=== PATIENT | female | born 1995 | race Caucasian/White ===

== ENCOUNTER 2016-11-10 17:13 | Emergency (ER) | payer BC ==
[2016-11-10 18:39] VITALS: BP 134/72
--- NOTE | 2016-11-11 00:37 | UC ---
Violette Westbrook Alok, scribed for Jolene Harmon MD on 11/10/16 at 1959 . Complaint Female HPI - HPI Summary HPI Summary: 21F presents to [facility] with urinary tract discomfort and suprapubic abd pain. Pt states her symptoms have been ongoing for 1 week and has worsened today. Pt also notes left flank pain on and off for the past week. Pt notes dysuria and increased urinary urgency. Pt denies fever. Pt denies vaginal discharge. Pt notes h/o kidney infection. Her LMP was 10/26/2016. Pt is allergic to Sulfa. - History Of Current Complaint Chief Complaint: UCGU Stated Complaint: URINARY ISSUE Time Seen by Provider: 11/10/16 17:29 Hx Obtained From: Patient Hx Last Menstrual Period: 10/20/16 ?: No Onset/Duration: Lasting Days, Worse Since - today Timing: Constant Severity Initially: Moderate Severity Currently: Moderate Pain Intensity: 0 Pain Scale Used: 0-10 Numeric Radiates to: suprapubic, left flank Character: Dull Aggravating Factor(s): Nothing Alleviating Factor(s): Nothing Associated Signs And Symptoms: Negative: Fever, Vaginal Bleeding/Discharge, Vaginal Discharge Related Hx: Similar Episode/Dx as: - UTI - Allergies/Home Medications Allergies/Adverse Reactions: Allergies Allergy/AdvReac Type Severity Reaction Status Date / Time Sulfa Antibiotics Allergy Unknown Verified 11/10/16 18:33 Reaction Details Home Medications: Home Medications Multiple Vitamin [Multivitamins] 1 cap PO DAILY 11/10/16 [History Confirmed ] Phenazopyridine HCl [Azo Urinary Pain Relief] 1 tab PO DAILY PRN 11/10/16 [ History Confirmed 11/10/16] PMH/Surg Hx/FS Hx/Imm Hx Previously Healthy: Yes GI/ History: Other - h/o kidney infection Other GI/ History: kidney infection - Surgical History Surgical History: None - Family History Known Family History: Positive: Other - Yes - Kidney stones (Mom) - Social History Occupation: Student Alcohol Use: Weekly Substance Use Type: None Substance Use Comment - Amount & Last Used: denies Smoking Status (MU): Current Some Day Smoker Amount Used/How Often: 1/2 pk/week Review of Systems Constitutional: Negative Gastrointestinal: Abdominal Pain Genitourinary: Dysuria, Urgency, Other - left flank pain All Other Systems Reviewed And Are Negative: Yes Physical Exam Triage Information Reviewed: Yes Appearance: Well-Appearing, Well-Nourished, Pain Distress Vital Signs: Initial Vital Signs Temp 98.3 F 11/10/16 18:35 Pulse 64 11/10/16 18:35 Resp 16 11/10/16 18:35 BP 134/72 11/10/16 18:35 Pulse Ox 100 11/10/16 18:35 Vital Signs Reviewed: Yes Eyes: Positive: Conjunctiva Clear ENT Exam: Normal Neck: Positive: Supple, Nontender, No Lymphadenopathy Respiratory: Positive: Lungs clear, Normal breath sounds, No respiratory distress Cardiovascular: Positive: RRR, No Murmur, Pulses Normal, Brisk Capillary Refill Abdomen Description: Positive: Nontender, No Organomegaly, Soft. Negative: CVA Tenderness (R), Distended, Guarding, McBurney's Point Tenderness, Peritoneal Signs Bowel Sounds: Positive: Present Musculoskeletal: Positive: Strength Intact, ROM Intact Neurological: Positive: Alert, Muscle Tone Normal Psychological Exam: Normal Skin Exam: Normal Complaint Female Dx - Course Course Of Treatment: Pt medications reviewed this visit. High BP noted. Pt presents with burning dysuria and left flank pain. Pt has h/o kidney infection. Pt took azo prior to coming, so will treat empirically. Await culture. Pt discharge with dx of UTI and antibiotics rx. - Differential Dx/Diagnosis Differential Diagnosis/HQI/PQRI: Ureteral Stone, Urinary Tract Infection, Other - STD Provider Diagnoses: Elevated BP without dx of HTN. Tobacco abuse disorder. UTI. Discharge - Discharge Plan Condition: Stable Disposition: HOME Prescriptions: Nitrofurantoin Monohyd Macro [Macrobid] 100 mg PO BID #14 cap Phenazopyridine 200 mg (NF) [Pyridium 200 MG tab] 200 mg PO TID PRN #15 tab PRN Reason: Pain Patient Education Materials: Urinary Tract Infection in Women (ED) Referrals: No Primary Care Phys,NOPCP [Primary Care Provider] - Additional Instructions: Please have your blood pressure rechecked within the next month. Return to urgent care if you have any new or worsening symptoms. The documentation as recorded by the Violette grubbs Alok accurately reflects the service I personally performed and the decisions made by , Jolene Harmon MD.
--- NOTE | 2016-11-12 18:46 | UC ---
Progress - Progress Note Progress Note: call patient and check on symptoms if sx not resolved follow with pcp edilberto if sx resolved may stop antibiotic as there is no growth in urine culture
== END 2016-11-10 20:15 | disposition home or self-care (01) ==
LOC: UCEAST 17:13
DX: N39.0 Urinary tract infection, site not specified (principal); F17.210 Nicotine dependence, cigarettes, uncomplicated; R03.0 Elevated blood-pressure reading, without diagnosis of hypertension; Z88.2 Allergy status to sulfonamides; Z87.442 Personal history of urinary calculi
CPT/HCPCS: 84702; 87086; 99212; G0463